=== PATIENT | female | born 1985 | race Caucasian/White ===

== ENCOUNTER 2023-04-13 11:49 | Observation (INO) | payer MEDICAID, SELFPAY ==
[2023-04-13] VITALS (9 sets, daily range): BP systolic 120–150; BP diastolic 78–99; PULSE 68–94; RESP 14–18; TEMP 36.7–37; O2SAT 96–100; BMI 23.5
--- NOTE | 2023-04-13 12:45 | W.ED.ABDPA2 ---
Documented by User: DOMINIK Garcia 04/13/23 15:29 HPI - Abdominal Pain General: Chief Complaint: Abdominal Pain Stated Complaint: abdomen pain Time Seen by Provider: 04/13/23 12:45 Source: patient Mode of arrival: ambulatory Limitations: no limitations History of Present Illness: Patient is a 37-year-old female presents to ED today with complaints of upper abdominal pain beginning yesterday. She states pain has been fairly constant since onset. She is having nausea and vomiting. She states about 6 months ago she had something similar and was seen at [facility] ED and told she needed emergent gallbladder surgery . She states she was boarded in their ED for 2 days but eventually left AMA. She states she did holistic remedies at home and the pain went away. She has been fairly asymptomatic over the past 6 months. She is currently reporting normal bowel movements. She reports subjective fevers. She is afebrile upon arrival here. Denies urinary symptoms. MD elicited complaint: abdominal pain Onset (ago): day(s) (yesterday) Pain Consistency: constant Location: Epigastric Severity: severe Quality: sharp Radiation: none Migration to: no migration Exacerbating factors: eating Relieving factors: nothing Associated Symptoms: Reports fever(s) (subjective), nausea and vomiting; Denies change in bowel habits, chills, dysuria and hematemesis Related Data: Patient : No Review of Systems Const: Reports: fever(s) (subjective); Denies: chills, body aches, fatigue or malaise Card: Denies: chest pain Resp: Denies: dyspnea GI: Reports: abdominal pain, nausea and vomiting; Denies: hematemesis or change in bowel habits : Denies: flank pain, difficulty voiding, dysuria, urinary frequency, urinary urgency or urinary hesitancy Musc: Denies: neck pain, back pain, extremity pain or joint pain Skin/Breast: Denies: rash Neuro: Denies: headache(s), numbness in extremities, weakness in extremities, sensory changes or dizziness [facility] ED PFSH: Surgical History (Updated 04/13/23 @ 15:51 by Mariposa Rehman MD) History of endometrial ablation History of tubal ligation Physical Exam Const: COMMON NORMALS: average body habitus, patient oriented x3, no limitations, alert and well nourished GENERAL APPEARANCE: cooperative ORIENTATION/CONSCIOUSNESS: Yes awake, Yes oriented to person, Yes oriented to place and Yes oriented to time HENMT: COMMON NORMALS: normocephalic and atraumatic HEAD & SCALP: normal to inspection, normocephalic and atraumatic Eye: COMMON NORMALS: no scleral icterus Neck/C-Spine: COMMON NORMALS: full ROM, no lymphadenopathy and no meningeal signs Chest: COMMONS NORMALS: normal inspection of the chest and normal palpation of entire chest wall Resp: COMMON NORMALS: normal respiratory effort and clear to auscultation bilaterally AUSCULTATION: clear to auscultation bilaterally Cardio: COMMON NORMALS: regular rate and regular rhythm RATE: regular rate RHYTHM: regular rhythm GI: COMMON NORMALS: Normal to inspection, nondistended, normoactive bowel sounds present, Soft to palpation, No hepatosplenomegaly present and no masses INSPECTION: Yes normal to inspection AUSCULTATION: Yes normoactive bowel sounds PALPATION: Yes Soft to palpation, Yes Tenderness to palpation present (GI) (epigastric, RUQ; + Galarza's) Details: RUQ, No Guarding due to palpation present (GI), No Rigid due to palpation and Yes No hepatosplenomegaly present : COMMON NORMALS: Yes no CVA tenderness BLADDER/KIDNEY EXAM: Yes no CVA tenderness Back/Pelvis: COMMON NORMALS: no CVA tenderness, thoracic and lumbar spine normal to inspection, no thoracic nor lumbar tenderness and thoraco-lumbar ROM normal Extremity: COMMON NORMALS: normal to inspection GENERAL: Yes normal exam except as noted Neuro: DEONNA COMA SCALE: document GCS findings Deonna coma scale eye opening: Spontaneous [place] coma scale verbal response: Orientated [place] coma scale motor response: Obey commands [place] coma scale total score: 15 COMMON NORMALS: patient oriented x3 SENSORIUM/ORIENTATION: Yes alert, Yes oriented to person, Yes oriented to place and Yes oriented to time MENINGEAL SIGNS: Yes no meningeal signs Skin: COMMON NORMALS: no rashes or lesions noted GENERAL SKIN EXAM: no rashes or lesions noted Course Consultations: Consultation #1: Dr. Rehman- will come see patient in ED Vital Signs: Vital signs: Vital Signs Temperature 98.1 F 04/13/23 12:13 Pulse Rate 72 04/13/23 14:53 Respiratory Rate 16 04/13/23 14:53 Blood Pressure 135/99 04/13/23 14:53 Pulse Oximetry 100 04/13/23 14:53 Oxygen Delivery Me thod Room Air 04/13/23 14:53 MDM - Abdominal Pain Medical Decision Making Patient is a 37-year-old female here for right upper quadrant and epigastric abdominal pain starting yesterday. She has had associated nausea and vomiting. On exam she has a positive Galarza sign. Ultrasound of her gallbladder showing a 1.2 to 1.5 cm shadowing calculus in the neck with diffuse wall thickening and edema-findings suspicious for cholecystitis. Her vital signs are normal. She has a white count of 21.9. Surprisingly her LFTs are normal. CXR/UA showing no infection to explain the leukocytosis. I spoke to Dr. Rehman with general surgery who will come consult on patient from the ED. Patient will be admitted to Dr. Rehman's service with plans for cholecystectomy depending on OR schedule. Lab Data 04/13/23 12:55 04/13/23 12:55 Labs/Radiology: Radiology Impressions Gallbladder Ultrasound 04/13/23 13:07 IMPRESSION: 1. Shadowing gallbladder calculus in the gallbladder neck measuring 1.2 CM. 2. Diffuse gallbladder wall thickening with edema. Findings suspicious for cholecystitis. 3. Common bile duct appears normal where visualized measuring 2.4 mm. 4. Normal liver. Notified DOMINIK Garcia at 04/13/2023 1:38 PM. Chest X-Ray 04/13/23 13:26 IMPRESSION: No acute findings. Laboratory Results WBC 21.9 10^3/uL (4.0-10.0) H 04/13/23 12:55 RBC 5.25 10^6/uL (4.1-5.3) 04/13/23 12:55 Hgb 16.3 g/dL (11.5-15.3) H 04/13/23 12:55 Hct 49.5 % (37.0-47.0) H 04/13/23 12:55 MCV 94.3 fl (81-99) 04/13/23 12:55 MCH 31.0 pg (28.0-34.0) 04/13/23 12:55 MCHC 32.9 g/dL (30.0-36.0) 04/13/23 12:55 RDW 12.1 % (12.1-15.1) 04/13/23 12:55 Plt Count 279 10^3/cmm (130-400) 04/13/23 12:55 MPV 10.9 fL (7.4-10.4) H 04/13/23 12:55 Neut % (Auto) 80.8 % 04/13/23 12:55 Lymph % (Auto) 12.9 % 04/13/23 12:55 [place] % (Auto) 5.0 % 04/13/23 12:55 Eos % (Auto) 0.5 % 04/13/23 12:55 Baso % (Auto) 0.5 % 04/13/23 12:55 Neut # (Auto) 17.69 10^3/uL (1.8-7.7) H 04/13/23 12:55 Lymph # (Auto) 2.8 10^3/uL (0.8-4.8) 04/13/23 12:55 [place] # (Auto) 1.1 10^3/uL (0.2-0.9) H 04/13/23 12:55 Eos # (Auto) 0.1 10^3/uL (0.0-0.8) 04/13/23 12:55 Baso # (Auto) 0.1 10^3/uL (0.0-0.1) 04/13/23 12:55 Nucleated RBC % (auto) 0 % 04/13/23 12:55 Nucleated RBCs # 0.0 /100WBC 04/13/23 12:55 Sodium 134 mmol/L (136-145) L 04/13/23 12:55 Potassium 3.9 mmol/L (3.5-5.1) 04/13/23 12:55 Chloride 97 mmol/L (98-107) L 04/13/23 12:55 Carbon Dioxide 24 mmol/L (22-29) 04/13/23 12:55 Anion Gap 16.9 (5-19) 04/13/23 12:55 BUN 7 mg/dL (6-20) 04/13/23 12:55 Creatinine 0.5 mg/dL (0.5-0.9) 04/13/23 12:55 GFR Calculation 137.4 mL/min (90-130) H 04/13/23 12:55 Glucose 105 mg/dL (65-115) 04/13/23 12:55 Calculated Osmolality 276 mOsm/kg (285-295) L 04/13/23 12:55 Calcium 9.4 mg/dL (8.5-10.5) 04/13/23 12:55 Total Bilirubin 0.5 mg/dL (0.15-1.2) 04/13/23 12:55 AST 13 U/L (0-32) 04/13/23 12:55 ALT 16 U/L (0-33) 04/13/23 12:55 Alkaline Phosphatase 99 U/L (35-105) 04/13/23 12:55 Total Protein 7.7 g/dL (6.6-8.7) 04/13/23 12:55 Albumin 4.4 g/dL (3.5-5.2) 04/13/23 12:55 Globulin 3.3 g/dL (1.3-4.6) 04/13/23 12:55 Lipase 16 U/L (13-60) 04/13/23 12:55 HCG, Qual Negative (Negative) 04/13/23 12:55 Urine Color Yellow (Yellow) 04/13/23 13:53 Urine Appearance Clear (CLEAR) 04/13/23 13:53 Urine pH 5 (5-7) 04/13/23 13:53 Ur Specific [place] 1.030 (1.005-1.030) 04/13/23 13:53 Urine Protein Neg (Negative) 04/13/23 13:53 Urine Glucose (UA) Norm (Normal) 04/13/23 13:53 Urine Ketones 1+ (Negative) H 04/13/23 13:53 Urine Blood 2+ (Negative) H 04/13/23 13:53 Urine Nitrate Negative (Negative) 04/13/23 13:53 Urine Bilirubin Neg (Negative) 04/13/23 13:53 Urine Urobilinogen Norm mg/dL (Negative) 04/13/23 13:53 Ur Leukocyte Esterase Negative (Negative) 04/13/23 13:53 Urine RBC 0-4 /hpf (0-2) H 04/13/23 13:53 Urine WBC None /hpf (0-5) 04/13/23 13:53 Ur Squamous Epith Cells 5-10 /hpf (0-5) H 04/13/23 13:53 Amorphous Sediment Not Reportable 04/13/23 13:53 Urine Bacteria Trace /hpf (NONE) 04/13/23 13:53 Urine Opiates Screen Negative ng/mL (Negative) 04/13/23 13:53 Ur Barbiturates Screen Negative ng/mL (Negative) 04/13/23 13:53 Ur Phencyclidine Scrn Negative ng/mL (Negative) 04/13/23 13:53 Ur Amphetamines Screen Positive ng/mL (Negative) H 04/13/23 13:53 U Benzodiazepines Scrn Negative ng/mL (Negative) 04/13/23 13:53 Urine Cocaine Screen Negative ng/mL (Negative) 04/13/23 13:53 U Marijuana (THC) Screen Negative ng/mL (Negative) 04/13/23 13:53 Discharge Plan Discharge Patient Disposition: Admitted As Inpatient Clinical Impression: Gallbladder calculus with acute cholecystitis Qualifiers: Biliary obstruction: without biliary obstruction Qualified Code(s): K80.00 - Calculus of gallbladder with acute cholecystitis without obstruction Condition: Stable Coding Level of Care Code ED Acquis[employer] Librarian for Chg Fwd Documented by User: Mariposa Rehman MD 04/13/23 14:27 HPI - Abdominal Pain General: Chief Complaint: Abdominal Pain Stated Complaint: abdomen pain Time Seen by Provider: 04/13/23 12:45 [facility] ED PFSH: Surgical History (Updated 04/13/23 @ 15:51 by Mariposa Rehman MD) History of endometrial ablation History of tubal ligation Physical Exam Neuro: DEONNA COMA SCALE: document GCS findings [place] coma scale total score: 15 Course Vital Signs: Vital signs: Vital Signs Temperature 98.1 F 04/13/23 12:13 Pulse Rate 72 04/13/23 14:53 Respiratory Rate 16 04/13/23 14:53 Blood Pressure 135/99 04/13/23 14:53 Pulse Oximetry 100 04/13/23 14:53 Oxygen Delivery Me thod Room Air 04/13/23 14:53 MDM - Abdominal Pain Lab Data 04/13/23 12:55 04/13/23 12:55 Labs/Radiology: Radiology Impressions Gallbladder Ultrasound 04/13/23 13:07 IMPRESSION: 1. Shadowing gallbladder calculus in the gallbladder neck measuring 1.2 CM. 2. Diffuse gallbladder wall thickening with edema. Findings suspicious for cholecystitis. 3. Common bile duct appears normal where visualized measuring 2.4 mm. 4. Normal liver. Notified DOMINIK Garcia at 04/13/2023 1:38 PM. Chest X-Ray 04/13/23 13:26 IMPRESSION: No acute findings. Laboratory Results WBC 21.9 10^3/uL (4.0-10.0) H 04/13/23 12:55 RBC 5.25 10^6/uL (4.1-5.3) 04/13/23 12:55 Hgb 16.3 g/dL (11.5-15.3) H 04/13/23 12:55 Hct 49.5 % (37.0-47.0) H 04/13/23 12:55 MCV 94.3 fl (81-99) 04/13/23 12:55 MCH 31.0 pg (28.0-34.0) 04/13/23 12:55 MCHC 32.9 g/dL (30.0-36.0) 04/13/23 12:55 RDW 12.1 % (12.1-15.1) 04/13/23 12:55 Plt Count 279 10^3/cmm (130-400) 04/13/23 12:55 MPV 10.9 fL (7.4-10.4) H 04/13/23 12:55 Neut % (Auto) 80.8 % 04/13/23 12:55 Lymph % (Auto) 12.9 % 04/13/23 12:55 [place] % (Auto) 5.0 % 04/13/23 12:55 Eos % (Auto) 0.5 % 04/13/23 12:55 Baso % (Auto) 0.5 % 04/13/23 12:55 Neut # (Auto) 17.69 10^3/uL (1.8-7.7) H 04/13/23 12:55 Lymph # (Auto) 2.8 10^3/uL (0.8-4.8) 04/13/23 12:55 [place] # (Auto) 1.1 10^3/uL (0.2-0.9) H 04/13/23 12:55 Eos # (Auto) 0.1 10^3/uL (0.0-0.8) 04/13/23 12:55 Baso # (Auto) 0.1 10^3/uL (0.0-0.1) 04/13/23 12:55 Nucleated RBC % (auto) 0 % 04/13/23 12:55 Nucleated RBCs # 0.0 /100WBC 04/13/23 12:55 Sodium 134 mmol/L (136-145) L 04/13/23 12:55 Potassium 3.9 mmol/L (3.5-5.1) 04/13/23 12:55 Chloride 97 mmol/L (98-107) L 04/13/23 12:55 Carbon Dioxide 24 mmol/L (22-29) 04/13/23 12:55 Anion Gap 16.9 (5-19) 04/13/23 12:55 BUN 7 mg/dL (6-20) 04/13/23 12:55 Creatinine 0.5 mg/dL (0.5-0.9) 04/13/23 12:55 GFR Calculation 137.4 mL/min (90-130) H 04/13/23 12:55 Glucose 105 mg/dL (65-115) 04/13/23 12:55 Calculated Osmolality 276 mOsm/kg (285-295) L 04/13/23 12:55 Calcium 9.4 mg/dL (8.5-10.5) 04/13/23 12:55 Total Bilirubin 0.5 mg/dL (0.15-1.2) 04/13/23 12:55 AST 13 U/L (0-32) 04/13/23 12:55 ALT 16 U/L (0-33) 04/13/23 12:55 Alkaline Phosphatase 99 U/L (35-105) 04/13/23 12:55 Total Protein 7.7 g/dL (6.6-8.7) 04/13/23 12:55 Albumin 4.4 g/dL (3.5-5.2) 04/13/23 12:55 Globulin 3.3 g/dL (1.3-4.6) 04/13/23 12:55 Lipase 16 U/L (13-60) 04/13/23 12:55 HCG, Qual Negative (Negative) 04/13/23 12:55 Urine Color Yellow (Yellow) 04/13/23 13:53 Urine Appearance Clear (CLEAR) 04/13/23 13:53 Urine pH 5 (5-7) 04/13/23 13:53 Ur Specific [place] 1.030 (1.005-1.030) 04/13/23 13:53 Urine Protein Neg (Negative) 04/13/23 13:53 Urine Glucose (UA) Norm (Normal) 04/13/23 13:53 Urine Ketones 1+ (Negative) H 04/13/23 13:53 Urine Blood 2+ (Negative) H 04/13/23 13:53 Urine Nitrate Negative (Negative) 04/13/23 13:53 Urine Bilirubin Neg (Negative) 04/13/23 13:53 Urine Urobilinogen Norm mg/dL (Negative) 04/13/23 13:53 Ur Leukocyte Esterase Negative (Negative) 04/13/23 13:53 Urine RBC 0-4 /hpf (0-2) H 04/13/23 13:53 Urine WBC None /hpf (0-5) 04/13/23 13:53 Ur Squamous Epith Cells 5-10 /hpf (0-5) H 04/13/23 13:53 Amorphous Sediment Not Reportable 04/13/23 13:53 Urine Bacteria Trace /hpf (NONE) 04/13/23 13:53 Urine Opiates Screen Negative ng/mL (Negative) 04/13/23 13:53 Ur Barbiturates Screen Negative ng/mL (Negative) 04/13/23 13:53 Ur Phencyclidine Scrn Negative ng/mL (Negative) 04/13/23 13:53 Ur Amphetamines Screen Positive ng/mL (Negative) H 04/13/23 13:53 U Benzodiazepines Scrn Negative ng/mL (Negative) 04/13/23 13:53 Urine Cocaine Screen Negative ng/mL (Negative) 04/13/23 13:53 U Marijuana (THC) Screen Negative ng/mL (Negative) 04/13/23 13:53 Discharge Plan Discharge Patient Disposition: Admitted As Inpatient Clinical Impression: Gallbladder calculus with acute cholecystitis Qualifiers: Biliary obstruction: without biliary obstruction Qualified Code(s): K80.00 - Calculus of gallbladder with acute cholecystitis without obstruction Condition: Stable Coding Level of Care Code ED [employer] Librarian for Chg Fwd Documented by User: Neto Knight DO 04/13/23 16:34 HPI - Abdominal Pain General: Chief Complaint: Abdominal Pain Stated Complaint: abdomen pain Time Seen by Provider: 04/13/23 12:45 PFSH ED PFSH: Surgical History (Updated 04/13/23 @ 15:51 by Mariposa Rehman MD) History of endometrial ablation History of tubal ligation Physical Exam Neuro: DEONNA COMA SCALE: document GCS findings [place] coma scale total score: 15 Course Vital Signs: Vital signs: Vital Signs Temperature 98.1 F 04/13/23 12:13 Pulse Rate 72 04/13/23 14:53 Respiratory Rate 16 04/13/23 14:53 Blood Pressure 135/99 04/13/23 14:53 Pulse Oximetry 100 04/13/23 14:53 Oxygen Delivery Me thod Room Air 04/13/23 14:53 MDM - Abdominal Pain Medical Decision Making Patient is a 37-year-old female here for right upper quadrant and epigastric abdominal pain starting yesterday. She has had associated nausea and vomiting. On exam she has a positive Galarza sign. Ultrasound of her gallbladder showing a 1.2 to 1.5 cm shadowing calculus in the neck with diffuse wall thickening and edema-findings suspicious for cholecystitis. Her vital signs are normal. She has a white count of 21.9. Surprisingly her LFTs are normal. CXR/UA showing no infection to explain the leukocytosis. I spoke to Dr. Rehman with general surgery who will come consult on patient from the ED. Patient will be admitted to Dr. Rehman's service with plans for cholecystectomy depending on OR schedule. Chart reviewed and patient discussed with midlevel. Agree with assessment and plan. Lab Data 04/13/23 12:55 04/13/23 12:55 Labs/Radiology: Radiology Impressions Gallbladder Ultrasound 04/13/23 13:07 IMPRESSION: 1. Shadowing gallbladder calculus in the gallbladder neck measuring 1.2 CM. 2. Diffuse gallbladder wall thickening with edema. Findings suspicious for cholecystitis. 3. Common bile duct appears normal where visualized measuring 2.4 mm. 4. Normal liver. Notified DOMINIK Garcia at 04/13/2023 1:38 PM. Chest X-Ray 04/13/23 13:26 IMPRESSION: No acute findings. Laboratory Results WBC 21.9 10^3/uL (4.0-10.0) H 04/13/23 12:55 RBC 5.25 10^6/uL (4.1-5.3) 04/13/23 12:55 Hgb 16.3 g/dL (11.5-15.3) H 04/13/23 12:55 Hct 49.5 % (37.0-47.0) H 04/13/23 12:55 MCV 94.3 fl (81-99) 04/13/23 12:55 MCH 31.0 pg (28.0-34.0) 04/13/23 12:55 MCHC 32.9 g/dL (30.0-36.0) 04/13/23 12:55 RDW 12.1 % (12.1-15.1) 04/13/23 12:55 Plt Count 279 10^3/cmm (130-400) 04/13/23 12:55 MPV 10.9 fL (7.4-10.4) H 04/13/23 12:55 Neut % (Auto) 80.8 % 04/13/23 12:55 Lymph % (Auto) 12.9 % 04/13/23 12:55 [place] % (Auto) 5.0 % 04/13/23 12:55 Eos % (Auto) 0.5 % 04/13/23 12:55 Baso % (Auto) 0.5 % 04/13/23 12:55 Neut # (Auto) 17.69 10^3/uL (1.8-7.7) H 04/13/23 12:55 Lymph # (Auto) 2.8 10^3/uL (0.8-4.8) 04/13/23 12:55 [place] # (Auto) 1.1 10^3/uL (0.2-0.9) H 04/13/23 12:55 Eos # (Auto) 0.1 10^3/uL (0.0-0.8) 04/13/23 12:55 Baso # (Auto) 0.1 10^3/uL (0.0-0.1) 04/13/23 12:55 Nucleated RBC % (auto) 0 % 04/13/23 12:55 Nucleated RBCs # 0.0 /100WBC 04/13/23 12:55 Sodium 134 mmol/L (136-145) L 04/13/23 12:55 Potassium 3.9 mmol/L (3.5-5.1) 04/13/23 12:55 Chloride 97 mmol/L (98-107) L 04/13/23 12:55 Carbon Dioxide 24 mmol/L (22-29) 04/13/23 12:55 Anion Gap 16.9 (5-19) 04/13/23 12:55 BUN 7 mg/dL (6-20) 04/13/23 12:55 Creatinine 0.5 mg/dL (0.5-0.9) 04/13/23 12:55 GFR Calculation 137.4 mL/min (90-130) H 04/13/23 12:55 Glucose 105 mg/dL (65-115) 04/13/23 12:55 Calculated Osmolality 276 mOsm/kg (285-295) L 04/13/23 12:55 Calcium 9.4 mg/dL (8.5-10.5) 04/13/23 12:55 Total Bilirubin 0.5 mg/dL (0.15-1.2) 04/13/23 12:55 AST 13 U/L (0-32) 04/13/23 12:55 ALT 16 U/L (0-33) 04/13/23 12:55 Alkaline Phosphatase 99 U/L (35-105) 04/13/23 12:55 Total Protein 7.7 g/dL (6.6-8.7) 04/13/23 12:55 Albumin 4.4 g/dL (3.5-5.2) 04/13/23 12:55 Globulin 3.3 g/dL (1.3-4.6) 04/13/23 12:55 Lipase 16 U/L (13-60) 04/13/23 12:55 HCG, Qual Negative (Negative) 04/13/23 12:55 Urine Color Yellow (Yellow) 04/13/23 13:53 Urine Appearance Clear (CLEAR) 04/13/23 13:53 Urine pH 5 (5-7) 04/13/23 13:53 Ur Specific [place] 1.030 (1.005-1.030) 04/13/23 13:53 Urine Protein Neg (Negative) 04/13/23 13:53 Urine Glucose (UA) Norm (Normal) 04/13/23 13:53 Urine Ketones 1+ (Negative) H 04/13/23 13:53 Urine Blood 2+ (Negative) H 04/13/23 13:53 Urine Nitrate Negative (Negative) 04/13/23 13:53 Urine Bilirubin Neg (Negative) 04/13/23 13:53 Urine Urobilinogen Norm mg/dL (Negative) 04/13/23 13:53 Ur Leukocyte Esterase Negative (Negative) 04/13/23 13:53 Urine RBC 0-4 /hpf (0-2) H 04/13/23 13:53 Urine WBC None /hpf (0-5) 04/13/23 13:53 Ur Squamous Epith Cells 5-10 /hpf (0-5) H 04/13/23 13:53 Amorphous Sediment Not Reportable 04/13/23 13:53 Urine Bacteria Trace /hpf (NONE) 04/13/23 13:53 Urine Opiates Screen Negative ng/mL (Negative) 04/13/23 13:53 Ur Barbiturates Screen Negative ng/mL (Negative) 04/13/23 13:53 Ur Phencyclidine Scrn Negative ng/mL (Negative) 04/13/23 13:53 Ur Amphetamines Screen Positive ng/mL (Negative) H 04/13/23 13:53 U Benzodiazepines Scrn Negative ng/mL (Negative) 04/13/23 13:53 Urine Cocaine Screen Negative ng/mL (Negative) 04/13/23 13:53 U Marijuana (THC) Screen Negative ng/mL (Negative) 04/13/23 13:53 Discharge Plan Discharge Patient Disposition: Admitted As Inpatient Clinical Impression: Gallbladder calculus with acute cholecystitis Qualifiers: Biliary obstruction: without biliary obstruction Qualified Code(s): K80.00 - Calculus of gallbladder with acute cholecystitis without obstruction Condition: Stable Coding Level of Care Code ED [employer] Librarian for Carito Bryant
[2023-04-13 13:03] LABS: Basophils # 0.1 10^3/uL (0.0-0.1); Basophils % 0.5 %; Eosinophils # 0.1 10^3/uL (0.0-0.8); Eosinophils % 0.5 %; Hematocrit 49.5 % (37.0-47.0); Hemoglobin 16.3 g/dL (11.5-15.3); Lymphocytes # 2.8 10^3/uL (0.8-4.8); Lymphocytes % 12.9 %; Mean Corpuscular HGB Conc 32.9 g/dL (30.0-36.0); Mean Corpuscular Volume 94.3 fl (81-99); Mean Platelet Volume 10.9 fL (7.4-10.4); Monocytes # 1.1 10^3/uL (0.2-0.9); Neutrophils # 17.69 10^3/uL (1.8-7.7); Neutrophils % 80.8 %; Nucleated Red Blood Cells % 0 %; Platelet Count 279 10^3/cmm (130-400); Red Blood Count 5.25 10^6/uL (4.1-5.3); Red Cell Distribution Width 12.1 % (12.1-15.1); White Blood Count 21.9 10^3/uL (4.0-10.0)
--- NOTE | 2023-04-13 13:07 | US_ITS ---
WS: [id number] ULTRASOUND ABDOMEN LIMITED CLINICAL INFORMATION: RUQ/epigastric pain COMPARISON: None. FINDINGS: Liver Size: Normal. Craniocaudal length: 14.7 cm. Echogenicity: Normal. Surface nodularity: None. Mass (size and location): None. Bile ducts Intrahepatic ducts: Normal. Common bile duct diameter: 0.2 cm. Gallbladder 1.5 cm shadowing calculus near the gallbladder neck Gallstones: Present Gallbladder sludge: None. Gallbladder wall thickening: Present measuring 6 to 7 mm Pericholecystic fluid: Fluid/edema Pancreas Normal as visualized. Spleen Splenomegaly: None. Craniocaudal length: cm. Right kidney: Normal. Hydronephrosis: None. Size: 10.5 cm x 4.2 cm x 4.4 cm. Abdominal aorta and IVC Visualized portions are normal. Ascites: None. US/US gall bladder [id number] IMPRESSION: 1. Shadowing gallbladder calculus in the gallbladder neck measuring 1.2 CM. 2. Diffuse gallbladder wall thickening with edema. Findings suspicious for cho lecystitis. 3. Common bile duct appears normal where visualized measuring 2.4 mm. 4. Normal liver. Notified DOMINIK Garcia at 04/13/2023 1:38 PM.
[2023-04-13 13:25] LABS: Alanine Aminotransferase 16 U/L (0-33); Albumin Level 4.4 g/dL (3.5-5.2); Alkaline Phosphatase 99 U/L (35-105); Anion Gap 16.9 (5-19); Aspartate Amino Transferase 13 U/L (0-32); Blood Urea Nitrogen 7 mg/dL (6-20); Calcium 9.4 mg/dL (8.5-10.5); Carbon Dioxide 24 mmol/L (22-29); Chloride 97 mmol/L (98-107); Globulin 3.3 g/dL (1.3-4.6); Glomerular Filtration Rate 137.4 mL/min (90-130); Glucose 105 mg/dL (65-115); Lipase 16 U/L (13-60); Osmolality Calculated 276 mOsm/kg (285-295); Potassium 3.9 mmol/L (3.5-5.1); Sodium 134 mmol/L (136-145); Total Bilirubin 0.5 mg/dL (0.15-1.2); Total Protein 7.7 g/dL (6.6-8.7)
--- NOTE | 2023-04-13 13:26 | XRR_ITS ---
PROCEDURE INFORMATION: Exam: XR Chest Exam date and time: 04/13/2023 1:40 PM Age: 37 years old Clinical indication: Other: Abdominal pain, leukocytosis TECHNIQUE: Imaging protocol: Radiologic exam of the chest. Views: 1 view. COMPARISON: No relevant prior studies available. FINDINGS: Lungs: Unremarkable. No consolidation. Pleural spaces: Unremarkable. No pleural effusion. No pneumothorax. Heart/Mediastinum: Unremarkable. No cardiomegaly. Bones/joints: Unremarkable. XR/XR chest 1V portable [id number] IMPRESSION: No acute findings.
[2023-04-13 13:34] LABS: HCG, Serum Qual Negative (Negative)
[2023-04-13 14:14] LABS: Urine Appearance Clear (CLEAR); Urine Color Yellow (Yellow); pH Urine 5 (5-7)
[2023-04-13 14:15] LABS: Add Urine Culture? No; Add Urine Microscopic? YES; Bacteria Urine TRACE /hpf; Bilirubin Urine Neg (Negative); Blood Urine 2+ (Negative); Glucose Urine UA Norm (Normal); Ketones Urine 1+ (Negative); Leukocyte Esterase Urine Negative (Negative); Nitrate Urine Negative (Negative); Protein Urine Neg (Negative); RBC Urine 0-4 /hpf (0-2); Urobilinogen Urine Norm (Negative)
[2023-04-13 14:19] LABS: Amphetamines Screen Urine Positive (Negative); Barbiturates Screen Urine Negative (Negative); Benzodiazepines Screen Urine Negative (Negative); Cocaine Screen Urine Negative (Negative); Opiate Screen Urine Negative (Negative); PCP Screen Urine Negative (Negative); THC Screen Urine Negative (Negative)
[2023-04-13] MEDS: piperacillin-tazobactam 3.375 GM in sodium chloride 0.9% (plus) 50 ML IV (14:57)
[2023-04-13] MEDS: fentaNYL 50 mcg/mL INJ 2mL IVP (15:47)
[2023-04-13] MEDS: ondansetron 2 mg/ML SDV 2 mL 4 MG IVP (15:47)
--- NOTE | 2023-04-13 15:48 | PM.HP ---
Providers/Chief Complaint Admitting Physician: Mariposa Rehman MD Chief Complaint: abdomen pain History of Present Illness Kayce Marcus is a 37 year old female who presents with intractable epigastric pain since yesterday. She has had similar symptoms intermittently and was supposed to have cholecystectomy in December but departed the medical facility AMA. She has had intermittent symptoms since then but pain became worse yesterday. She has been sweaty and feels like she has had a fever. She has had nausea and vomiting. She denies any change in color of urine or stool. Review of Systems Const: Reports: fever(s) (Subjective) and chills Card: Reports: chest pain (a little with this illness, none at baseline) Resp: Denies: dyspnea GI: Reports: abdominal pain, nausea, vomiting and constipation; Denies: hematemesis or hematochezia : Denies: difficulty voiding or dysuria Saqib/Lymph: Denies: easy bleeding Medications/Allergies Home Medications Medication Instructions Recorded Confirmed Last Taken Type No Known Home Medications 04/13/23 04/13/23 Unknown History Allergies Allergy/AdvReac Type Severity Reaction Status Date / Time No Known Allergies Allergy Unverified 04/13/23 14:10 PFSH Acute PFSH: Surgical History (Updated 04/13/23 @ 15:51 by Mariposa Rehman MD) History of endometrial ablation History of tubal ligation Vitals/I&O/Wt Last Vital Signs Temp 98.1 F 04/13/23 12:13 Pulse 72 04/13/23 14:53 Resp 16 04/13/23 14:53 BP 135/99 04/13/23 14:53 Pulse Ox 100 04/13/23 14:53 O2 Del Method Room Air 04/13/23 14:53 04/13/23 04/13/23 04/13/23 06:59 14:59 22:59 Intake Total 50 / 50 Balance 50 / 50 Weight last 48 hrs Weight 150 lb Physical Exam Const: COMMON NORMALS: alert GENERAL APPEARANCE: other (appears uncomfortable) HENMT: COMMON NORMALS: normocephalic and atraumatic Eye: COMMON NORMALS: no scleral icterus Resp: COMMON NORMALS: normal respiratory effort and clear to auscultation bilaterally Cardio: COMMON NORMALS: regular rate, regular rhythm, S1 normal heart sound present and S2 normal heart sound present GI: INSPECTION: No abdominal distension and Yes scar (umbilical trocar scar) AUSCULTATION: Yes normoactive bowel sounds PALPATION: Yes Soft to palpation, Yes Tenderness to palpation present (GI) Details: RUQ (focal tenderness with positive Galarza sign) and No Palpable mass present Extremity: COMMON NORMALS: no clubbing, cyanosis or edema Skin: COMMON NORMALS: turgor normal and no jaundice Data 04/13/23 12:55 04/13/23 12:55 US: Radiologist's impression: Radiology Impressions Gallbladder Ultrasound 04/13/23 13:07 IMPRESSION: 1. Shadowing gallbladder calculus in the gallbladder neck measuring 1.2 CM. 2. Diffuse gallbladder wall thickening with edema. Findings suspicious for cholecystitis. 3. Common bile duct appears normal where visualized measuring 2.4 mm. 4. Normal liver. Notified DOMINIK Garcia at 04/13/2023 1:38 PM. Chest X-Ray 04/13/23 13:26 IMPRESSION: No acute findings. A&P Assessment and plan (1) Gallbladder calculus with acute cholecystitis: Examination and imaging evidence of acute cholecystitis in a patient with known gallstones. I discussed gallbladder disease with the patient in lay terms. Will admit for pain control and antibiotics and plan cholecystectomy this admission. Qualifiers: Biliary obstruction: without biliary obstruction Qualified Code(s): K80.00 - Calculus of gallbladder with acute cholecystitis without obstruction Attestations Medical Necessity Statement*: [facility] will require greater than 2 midnights for treatment of acute cholecystitis. Coding Level of Care Code Acute Code for [facility] Fwd Diagnoses Gallbladder calculus with acute cholecystitis K80.00 Biliary obstruction: without biliary obstruction
--- NOTE | 2023-04-13 18:46 | PC.NURSE ---
Patient was unwilling to have her wallet locked up. Patient states, I will keep it at bedside by me. Explained to patient that she would be responsible for any belonging left at bedside. Patient verbalized understanding.
[2023-04-13] MEDS: ciprofloxacin 500 mg Tablet PO (21:25)
[2023-04-13] MEDS: metroNIDAZOLE 500 MG Tablet PO (21:25)
[2023-04-13] MEDS: HYDROmorphone 1 mg/mL INJ 1 mL IVP (23:48)
[2023-04-14] VITALS (17 sets, daily range): BP systolic 105–124; BP diastolic 72–88; PULSE 63–87; RESP 14–22; TEMP 36.1–36.9; O2SAT 91–100
[2023-04-14] MEDS: sodium chloride 0.9% 1,000 ML 100 ML IV (03:58)
[2023-04-14 05:33] LABS: Basophils # 0.1 10^3/uL (0.0-0.1); Basophils % 0.4 %; Eosinophils # 0.2 10^3/uL (0.0-0.8); Eosinophils % 1.3 %; Hematocrit 48.3 % (37.0-47.0); Hemoglobin 15.7 g/dL (11.5-15.3); Lymphocytes # 2.8 10^3/uL (0.8-4.8); Lymphocytes % 20.2 %; Mean Corpuscular HGB Conc 32.5 g/dL (30.0-36.0); Mean Corpuscular Hemoglobin 30.5 pg (28.0-34.0); Mean Corpuscular Volume 93.8 fl (81-99); Mean Platelet Volume 11.2 fL (7.4-10.4); Monocytes # 1.3 10^3/uL (0.2-0.9); Monocytes % 9.2 %; Neutrophils # 9.57 10^3/uL (1.8-7.7); Neutrophils % 68.5 %; Nucleated Red Blood Cells % 0 %; Platelet Count 263 10^3/cmm (130-400); Red Blood Count 5.15 10^6/uL (4.1-5.3); Red Cell Distribution Width 12.1 % (12.1-15.1)
[2023-04-14 05:55] LABS: Alanine Aminotransferase 195 U/L (0-33); Albumin Level 3.9 g/dL (3.5-5.2); Alkaline Phosphatase 125 U/L (35-105); Anion Gap 13.9 (5-19); Aspartate Amino Transferase 286 U/L (0-32); Blood Urea Nitrogen 7 mg/dL (6-20); Calcium 8.9 mg/dL (8.5-10.5); Carbon Dioxide 28 mmol/L (22-29); Chloride 98 mmol/L (98-107); Glomerular Filtration Rate 93.2 mL/min (90-130); Glucose 96 mg/dL (65-115); Osmolality Calculated 280 mOsm/kg (285-295); Potassium 3.9 mmol/L (3.5-5.1); Sodium 136 mmol/L (136-145); Total Bilirubin 0.6 mg/dL (0.15-1.2); Total Protein 6.9 g/dL (6.6-8.7)
[2023-04-14] MEDS: HYDROmorphone 1 mg/mL INJ 1 mL IVP (06:10)
--- NOTE | 2023-04-14 06:20 | PC.NURSE ---
pt left the unit via wheelchair with surgery staff at this time to preop.
--- NOTE | 2023-04-14 06:52 | ANES.PREANE2 ---
Pre-Anesthetic Assessment Height/Weight: Height 1.7 m Weight 68.039 kg Temp Pulse Resp BP Pulse Ox O2 Del Method 96.9 F L 81 16 106/72 94 Room Air 04/14/23 06:44 04/14/23 06:44 04/14/23 06:44 04/14/23 06:44 04/14/23 06:44 04/14/23 04:00 Operation Date: 04/14/23 07:00 Proposed Procedures p Laparoscopic Cholecystectomy(Not Applicable) - Dre Johnson DO Familial anesthetic complications: none Last intake: > 8hrs Social No alcohol and No tobacco eventually admitted to meth use, after being asked about (+) Utox Exam alert, oriented x 3, clear to auscultation bilaterally and regular rate & rhythm Airway Mallampati: Class III Dentition: chipped Anesthetic Plan ASA status: 2 Anesthesia: General Risk of > 500 ml blood loss (7ml/kg in children): No Medications/Allergies Home Medications Medication Instructions Recorded Confirmed Last Taken Type No Known Home Medications 04/13/23 04/13/23 Unknown History Allergies Allergy/AdvReac Type Severity Reaction Status Date / Time No Known Allergies Allergy Unverified 04/13/23 14:10 Current Medications Generic Name Dose Route Start Last Admin Trade Name Freq PRN Reason Stop Dose Admin Hydromorphone HCl 1 mg 04/13/23 17:26 04/14/23 06:10 Hydromorphone 1 Mg/Ml Inj 1 Ml IVP 1 mg Q2H PRN Administration PAIN Sodium Chloride 1,000 mls @ 100 mls/hr 04/13/23 17:26 04/14/23 03:58 Sodium Chloride 0.9% IV 100 mls/hr .Q10H MÓNICA Administration Nicotine 1 patch 04/13/23 17:45 04/13/23 18:39 Nicotine 21 Mg Patch TRANSDERMA Not Given DAILY MÓNICA PFSH Anesthesia Surgical History (Updated 04/13/23 @ 15:51 by Mariposa Rehman MD) History of endometrial ablation History of tubal ligation Data Anesthesia 04/14/23 04:50 04/14/23 04:50 Short CBC 04/13/23 04/14/23 Range/Units 12:55 04:50 WBC 21.9 H 14.0 H (4.0-10.0) 10^3/uL Hgb 16.3 H 15.7 H (11.5-15.3) g/dL Hct 49.5 H 48.3 H (37.0-47.0) % MCV 94.3 93.8 (81-99) fl Plt Count 279 263 (130-400) 10^3/cmm Neut % (Auto) 80.8 68.5 % Neut # (Auto) 17.69 H 9.57 H (1.8-7.7) 10^3/uL BMP 04/13/23 04/14/23 12:55 04:50 Sodium 134 L 136 Potassium 3.9 3.9 Chloride 97 L 98 Carbon Dioxide 24 28 BUN 7 7 Creatinine 0.5 0.7 Glucose 105 96 Calcium 9.4 8.9 Liver Function 04/13/23 04/14/23 Range/Units 12:55 04:50 Total Bilirubin 0.5 0.6 (0.15-1.2) mg/dL AST 13 286 H (0-32) U/L ALT 16 195 H (0-33) U/L Alkaline Phosphatase 99 125 H (35-105) U/L Albumin 4.4 3.9 (3.5-5.2) g/dL Urine 04/13/23 Range/Units 13:53 Urine Color Yellow (Yellow) Urine Appearance Clear (CLEAR) Urine pH 5 (5-7) Ur Specific [place] 1.030 (1.005-1.030) Urine Protein Neg (Negative) Urine Glucose (UA) Norm (Normal) Urine Ketones 1+ H (Negative) Urine Nitrate Negative (Negative) Urine Bilirubin Neg (Negative) Ur Leukocyte Esterase Negative (Negative) Urine RBC 0-4 H (0-2) /hpf Urine WBC None (0-5) /hpf Cardiac Studies: No Data to Display
--- NOTE | 2023-04-14 06:57 | PM.PN ---
Vitals/I&O/Wt Last Vital Signs Temp 96.9 F L 04/14/23 06:44 Pulse 81 04/14/23 06:44 Resp 16 04/14/23 06:44 BP 106/72 04/14/23 06:44 Pulse Ox 94 04/14/23 06:44 O2 Del Method Room Air 04/14/23 04:00 04/13/23 04/13/23 04/14/23 14:59 22:59 06:59 Intake Total 50 / 50 Balance 50 / 50 Weight last 48 hrs Weight 150 lb Data 04/14/23 04:50 04/14/23 04:50 A&P Assessment and plan (1) Gallbladder calculus with acute cholecystitis: Qualifiers: Biliary obstruction: without biliary obstruction Qualified Code(s): K80.00 - Calculus of gallbladder with acute cholecystitis without obstruction Plan Laparoscopic cholecystectomy The risks and benefits of the procedure, including but not limited to, bleeding, infection, scar, numbness, pain, damage to surrounding structures, damage to common bile duct requiring additional surgery, conversion to an open procedure, were explained to the patient. He is understanding of the risks and wishes to proceed. Attestations Medical Necessity Statement*: Home Coding Level of Care Code Acute Code for [facility] Fwd Diagnoses Gallbladder calculus with acute cholecystitis K80.00 Biliary obstruction: without biliary obstruction
[2023-04-14] MEDS: piperacillin-tazobactam 3.375 GM in sodium chloride 0.9% (plus) 50 ML IV (06:59)
[2023-04-14] MEDS: lidocaine-epi 2% 20 mL INJ INJECTION (07:12)
--- NOTE | 2023-04-14 07:53 | P.OP_ITS ---
Operative Report Date of procedure: April 14, 2023 Pre-op diagnosis: Acute calculus cholecystitis Post-op diagnosis: same Procedure done: Laparoscopic cholecystectomy Implants: None Specimens removed/disposition: Gallbladder Surgeon: Dr. Dre Johnson DO Anesthesia: General Estimated blood loss (mL): 5 Complications: None apparent Brief History: This is a pleasant 37-year-old female who presents to the hospital with abdominal pain. She was diagnosed with acute calculus cholecystitis. Laparoscopic cholecystectomy was indicated. The risks and benefits were explained and documented. Procedure: Patient was wheeled into the operative room and placed on the OR table in a supine position. Abdomen was inspected prepped and draped in usual sterile fashion. Time-out was performed and all present were in agreement. A 15 blade scalp was used to make a stab incision in the left upper quadrant and intra- abdominal insufflation was achieved using a Veress needle. After localizing the tissue incisions were made and a 5 millimeter trocar was placed into the um bilicus as well as 2 in the right upper quadrant. A 12 millimeter trocar was placed in the epigastrium. The gallbladder was markedly inflamed with omental adhesions. Gallbladder was grasped and elevated. Omental adhesions were taken down bluntly. The triangle of Calot was carefully dissected using blunt dissection and electrocautery until the triangle of Calot clearly identified. The cystic duct was clipped proximally and double clipped distally. The duct was then ligated proximally. The cystic artery was doubly clipped and ligated. The gallbladder was then removed from the liver bed using electrocautery. The gallbladder was removed from the abdomen using an Endo-Catch bag through the epigastric incision. The liver bed was inspected and no bleeding was seen. The abdomen was irrigated and suctioned. The epigastric port was closed with a Oral-Sandi and 0 Vicryl suture in a [id number] fashion. All ports removed. Skin was washed and dried. Incisions were closed with 4-0 Monocryl in a subcuticular interrupted fashion. Skin glue was applied. Patient tolerated the procedure well.
--- NOTE | 2023-04-14 11:01 | PC.SOCIAL ---
SDOH completed, resources provided based on answer.
--- NOTE | 2023-04-14 14:09 | PM.DCS ---
Discharge Providers Date of Admission: 04/13/23 15:34 Date of Discharge: April 14, 2023 Attending Provider at Admission: Mariposa Rehman MD Attending Provider at Discharge: Dr. Dre Johnson DO Diagnoses at Discharge Discharge Diagnosis (1) Gallbladder calculus with acute cholecystitis: Status: Acute Qualifiers: Biliary obstruction: without biliary obstruction Qualified Code(s): K80.00 - Calculus of gallbladder with acute cholecystitis without obstruction Reason for Visit Reason for Visit: abdomen pain Hospital Course Hospital Course This is a pleasant 37-year-old female who presented to the hospital with acute calculus cholecystitis. She underwent laparoscopic cholecystectomy and was discharged home in good condition with antibiotics and pain medication. Physical Exam Narrative: General : Patient is well developed , no acute distress, oriented x3 Head : Normal cephalic, a-traumatic. Ears : Pinnae and external canal are normal. Hearing is normal. Eyes : PERRLA, Sclera and injection are normal. No conjunctival discharge. Nose : Mucous membranes are without erythema. Throat : buccal mucosa is normal, gums are without significant recession or hypertrophy. Lungs : Equal chest rise bilaterally, no use of accessory muscles, trachea is midline. Cor : Rate and rhythm are normal. Abdomen : Soft, ND, appropriately tender, no g/r/m Incisions intact without erythema or exudate Extremities : No edema, no cyanosis or clubbing, dorsalis pedis pulses are present bilaterally, non-tender to palpation of calves. Upper extremities are normal bilaterally. Back : non-tender to palpation, no CVA tenderness. Neuro : CN II - XII intact, Upper and lower extremities have equal and full strength Discharge Data Studies Completed and Pending Completed Studies During Hospitalization Category Date Time Status XR chest 1V portable [id number] Urgent Exams 04/13/23 13:26 Completed US gall bladder [id number] Stat Ultrasound 04/13/23 13:07 Completed Pending at discharge Category Date Time Status Pathology: Surgical [PTH] Routine Pth 04/14/23 07:22 Received Radiology Impressions Gallbladder Ultrasound 04/13/23 13:07 IMPRESSION: 1. Shadowing gallbladder calculus in the gallbladder neck measuring 1.2 CM. 2. Diffuse gallbladder wall thickening with edema. Findings suspicious for cholecystitis. 3. Common bile duct appears normal where visualized measuring 2.4 mm. 4. Normal liver. Notified DOMINIK Garcia at 04/13/2023 1:38 PM. Chest X-Ray 04/13/23 13:26 IMPRESSION: No acute findings. Laboratory Results WBC 14.0 10^3/uL (4.0-10.0) H 04/14/23 04:50 RBC 5.15 10^6/uL (4.1-5.3) 04/14/23 04:50 Hgb 15.7 g/dL (11.5-15.3) H 04/14/23 04:50 Hct 48.3 % (37.0-47.0) H 04/14/23 04:50 MCV 93.8 fl (81-99) 04/14/23 04:50 MCH 30.5 pg (28.0-34.0) 04/14/23 04:50 MCHC 32.5 g/dL (30.0-36.0) 04/14/23 04:50 RDW 12.1 % (12.1-15.1) 04/14/23 04:50 Plt Count 263 10^3/cmm (130-400) 04/14/23 04:50 MPV 11.2 fL (7.4-10.4) H 04/14/23 04:50 Neut % (Auto) 68.5 % 04/14/23 04:50 Lymph % (Auto) 20.2 % 04/14/23 04:50 [place] % (Auto) 9.2 % 04/14/23 04:50 Eos % (Auto) 1.3 % 04/14/23 04:50 Baso % (Auto) 0.4 % 04/14/23 04:50 Neut # (Auto) 9.57 10^3/uL (1.8-7.7) H 04/14/23 04:50 Lymph # (Auto) 2.8 10^3/uL (0.8-4.8) 04/14/23 04:50 [place] # (Auto) 1.3 10^3/uL (0.2-0.9) H 04/14/23 04:50 Eos # (Auto) 0.2 10^3/uL (0.0-0.8) 04/14/23 04:50 Baso # (Auto) 0.1 10^3/uL (0.0-0.1) 04/14/23 04:50 Nucleated RBC % (auto) 0 % 04/14/23 04:50 Nucleated RBCs # 0.0 /100WBC 04/14/23 04:50 Sodium 136 mmol/L (136-145) 04/14/23 04:50 Potassium 3.9 mmol/L (3.5-5.1) 04/14/23 04:50 Chloride 98 mmol/L (98-107) 04/14/23 04:50 Carbon Dioxide 28 mmol/L (22-29) 04/14/23 04:50 Anion Gap 13.9 (5-19) 04/14/23 04:50 BUN 7 mg/dL (6-20) 04/14/23 04:50 Creatinine 0.7 mg/dL (0.5-0.9) 04/14/23 04:50 GFR Calculation 93.2 mL/min (90-130) 04/14/23 04:50 Glucose 96 mg/dL (65-115) 04/14/23 04:50 Calculated Osmolality 280 mOsm/kg (285-295) L 04/14/23 04:50 Calcium 8.9 mg/dL (8.5-10.5) 04/14/23 04:50 Total Bilirubin 0.6 mg/dL (0.15-1.2) 04/14/23 04:50 AST 286 U/L (0-32) H 04/14/23 04:50 ALT 195 U/L (0-33) H 04/14/23 04:50 Alkaline Phosphatase 125 U/L (35-105) H 04/14/23 04:50 Total Protein 6.9 g/dL (6.6-8.7) 04/14/23 04:50 Albumin 3.9 g/dL (3.5-5.2) 04/14/23 04:50 Globulin 3.0 g/dL (1.3-4.6) 04/14/23 04:50 Lipase 16 U/L (13-60) 04/13/23 12:55 HCG, Qual Negative (Negative) 04/13/23 12:55 Urine Color Yellow (Yellow) 04/13/23 13:53 Urine Appearance Clear (CLEAR) 04/13/23 13:53 Urine pH 5 (5-7) 04/13/23 13:53 Ur Specific [place] 1.030 (1.005-1.030) 04/13/23 13:53 Urine Protein Neg (Negative) 04/13/23 13:53 Urine Glucose (UA) Norm (Normal) 04/13/23 13:53 Urine Ketones 1+ (Negative) H 04/13/23 13:53 Urine Blood 2+ (Negative) H 04/13/23 13:53 Urine Nitrate Negative (Negative) 04/13/23 13:53 Urine Bilirubin Neg (Negative) 04/13/23 13:53 Urine Urobilinogen Norm mg/dL (Negative) 04/13/23 13:53 Ur Leukocyte Esterase Negative (Negative) 04/13/23 13:53 Urine RBC 0-4 /hpf (0-2) H 04/13/23 13:53 Urine WBC None /hpf (0-5) 04/13/23 13:53 Ur Squamous Epith Cells 5-10 /hpf (0-5) H 04/13/23 13:53 Amorphous Sediment Not Reportable 04/13/23 13:53 Urine Bacteria Trace /hpf (NONE) 04/13/23 13:53 Urine Opiates Screen Negative ng/mL (Negative) 04/13/23 13:53 Ur Barbiturates Screen Negative ng/mL (Negative) 04/13/23 13:53 Ur Phencyclidine Scrn Negative ng/mL (Negative) 04/13/23 13:53 Ur Amphetamines Screen Positive ng/mL (Negative) H 04/13/23 13:53 U Benzodiazepines Scrn Negative ng/mL (Negative) 04/13/23 13:53 Urine Cocaine Screen Negative ng/mL (Negative) 04/13/23 13:53 U Marijuana (THC) Screen Negative ng/mL (Negative) 04/13/23 13:53 Procedures Performed Laparoscopic cholecystectomy Vitals Last Vital Signs Temp 97.9 F 04/14/23 11:59 Pulse 71 04/14/23 11:59 Resp 18 04/14/23 11:59 BP 121/83 04/14/23 11:59 Pulse Ox 96 04/14/23 11:59 O2 Del Method Room Air 04/14/23 11:59 O2 Flow Rate 6 04/14/23 08:05 Discharge Plan Discharge Patient Disposition: Home Condition: Stable Prescriptions: New amoxicillin-pot clavulanate 875-125 mg tablet 1 tab PO BID Qty: 20 0RF oxycodone-acetaminophen 5-325 mg tablet 1 tab PO Q6H PRN (Reason: pain) Qty: 20 0RF DOK 100 mg capsule 100 mg PO BID Qty: 14 0RF Discharge Orders: Discharge Order (Routine); Ordered 04/14/23 Ordered By: Dre Johnson Referrals: Dre Johnson DO [Physician] - 04/28/23 9:15 am Discharge Diet: Advance as tolerated Discharge Activity: Resume usual activity Patient Instructions: Opioid Safety, Post Anesthesia Care Activity Restrictions/Additional Instructions: Do not soak incisions underwater for 2 weeks. Shower daily. Discharge Attestations Time Spent in Discharge Care*: less than 30 min Quality Metrics Clinical Quality Measures [ No reported AMI, CVA or VTE this stay] Coding Level of Care Code Acute Code for [facility] Fwd Diagnoses Gallbladder calculus with acute cholecystitis K80.00 Biliary obstruction: without biliary obstruction
--- NOTE | 2023-04-14 15:52 | ANE.PACU2 ---
Inpatient post-anesthesia follow up: Airway intact: Yes Vital signs: Temperature 97.9 F Pulse Rate 71 Respiratory Rate 18 Blood Pressure 121/83 Pulse Oximetry 96 Oxygen Delivery Me thod Room Air Oxygen Flow Rate 6 Fraction of Inspir ed Oxygen Hydration adequate: Yes Nausea and vomiting: Yes Pain level: 1 Mental status: Baseline
== END 2023-04-14 14:36 | disposition home or self-care (01) ==
LOC: ER 15:55 → MEDSURG 18:07
PROVIDERS: Surgery; Admitting Provider Surgery; Emergency Provider Physician Assistant; Visit Provider Surgery
PROC: 0FT44ZZ Resection of Gallbladder, Percutaneous Endoscopic Approach (ICD-10-PCS; CPT 47562; principal; 2023-04-14 07:00)
DX: K80.00 Calculus of gallbladder with acute cholecystitis without obstruction (principal)
CPT/HCPCS: 47562; 12345; 36415; 71045; 76705; 80053; 80306; 81001; 83690; 84703; 85025; 88304; 96365; 96366; 96375; 99285; G0378; J1100; J1170; J1200; J1885; J2250; J2370; J2405; J2543; J2704; J2710; J3010; J3490; J7030